=== PATIENT | male | born 1995 | race Caucasian/White ===

== ENCOUNTER 2020-01-19 11:43 | Emergency (ER) | payer SELFPAY ==
--- NOTE | 2020-01-19 11:58 | ED.SKABFB ---
HPI - Skin/Abscess/Foreign Bdy General Chief complaint: Wound/Laceration Stated complaint: infection rt arm Time Seen by Provider: 01/19/20 11:58 Source: patient Mode of arrival: ambulatory Limitations: no limitations History of Present Illness HPI narrative: 24 y/o male with history of IVDA presenting with new onset of 2 tender boils on his arm. He states he gets these all the time since he has been using IV heroin daily for the last 6-7 months. He states they usually go away on their own if he leaves them alone. The one near his elbow is now more swollen and soft he states and he wants to get it evaluated for drainage. MD complaint: abscess/boil Related Data Previous Rx's Medication Instructions Recorded cephalexin [Keflex] 500 mg PO QID 7 Days #28 cap 01/19/20 doxycycline monohydrate 100 mg PO BID 7 Days #14 cap 01/19/20 Allergies Allergy/AdvReac Type Severity Reaction Status Date / Time No Known Allergies Allergy Unverified 12/23/19 19:50 [No Known Allergies*] Review of Systems Review of Systems: Constitutional: No Fever, No Chills ENT/Mouth: No sore throat, No Rhinorrhea Cardiovascular: No Chest Pain, No SOB Respiratory: No Cough Gastrointestinal: No Nausea, No Vomiting, No Diarrhea, No abdominal Pain Musculoskeletal: No joint pain, No Myalgias Skin: + Skin Lesions, No rash Neuro: No Weakness, No Numbness, No Dizziness, No Headache Psych: No Anxiety/Panic, No Depression Heme/Lymph: No Bruising, No Lymphadenopathy PMFSH Past Medical History Attestation statement: The following information was validated with the patient. Medical History (Updated 01/19/20 @ 12:45 by HERMINIO Lopez) IVDU (intravenous drug user) No known health problems Social History Social History Advance Directives: No Advance Directives Information Provided: No Physical Exam Vital Signs: Vital Signs: Vital Signs Temp Pulse Resp BP Pulse Ox 01/19/20 12:21 97.1 F 83 17 141/68 H 97 Body Mass Index 28.2 Appearance: Alert. Oriented X3. No acute distress. HEENT: normal inspection CVS: Normal heart rate and rhythm. Pulses normal. Respiratory: No respiratory distress. Skin: Skin warm and dry. Normal skin color. Normal skin turgor. No rashes. Extremities: right forearm 2 celluliitic areas of erythema and warmth 2cm x2cm. fluctuant abscess in in AC fossa with mild surrouding erythema. Neuro: Oriented X 3. No motor deficit. No sensory deficit. Discharge Plan Discharge Clinical Impression: IVDU (intravenous drug user), Abscess Patient Disposition: Home, Self-Care Instructions: Abscess (ED) Additional Instructions: Come back to the ER in 2 days for a wound check and to remove the packing. If the pain, redness, or swelling get worse come back to the ER sooner for evaluation. If you develop fever or chills come back to the ER for evaluation. Do not inject heroin into the sites of infection - in can lead to a life threatening blood stream infection. If you would like to pursue detox come back to the ER for resources. Prescriptions: New cephalexin [Keflex] 500 mg capsule 500 mg PO QID 7 Days Qty: 28 RF: 0 doxycycline monohydrate 100 mg capsule 100 mg PO BID 7 Days Qty: 14 RF: 0 Stand Alone Forms: Work/School Release Interventions: ED Discharge Assessment Last Done: 01/19/20 12:49 Discharge Date/Time: 01/19/20 12:52
[2020-01-19 12:21] VITALS: BP 141/68; PULSE 83; RESP 17; TEMP 36.2; O2SAT 97; BMI 28.2
[2020-01-19] MEDS: Lidocaine HCl 2 % MPF 5 ML VIAL SUBCUT (12:29)
== END 2020-01-19 12:52 | disposition home or self-care (01) ==
PROVIDERS: Emergency Provider Emergency Medicine
DX: L02.413 Cutaneous abscess of right upper limb (principal); M79.601 Pain in right arm; Z79.899 Other long term (current) drug therapy
CPT/HCPCS: 99283; 99284

== ENCOUNTER 2020-01-22 23:06 | Emergency (ER) | payer SELFPAY ==
[2020-01-22 23:10] VITALS: BP 118/81; PULSE 91; RESP 18; TEMP 36.6; O2SAT 97; BMI 28.3
--- NOTE | 2020-01-22 23:56 | ED.WOUNDLAC ---
HPI - Wound/Laceration General Chief Complaint: Wound/Laceration Stated Complaint: WOUND CHECK Time Seen by Provider: 01/22/20 23:26 Source: patient Mode of arrival: ambulatory History of Present Illness HPI narrative: 24-year-old male with a past medical history of IVDA presenting to ED for abscess check /packing removal to right AC from 3 days ago when seen in the ED. Admits to taking previously prescribed antibiotics. Reports area looks improved. Denies fever, chills, drainage Onset (ago): day(s) Related Data Previous Rx's Medication Instructions Recorded cephalexin [Keflex] 500 mg PO QID 7 Days #28 cap 01/19/20 doxycycline monohydrate 100 mg PO BID 7 Days #14 cap 01/19/20 Allergies Allergy/AdvReac Type Severity Reaction Status Date / Time No Known Allergies Allergy Unverified 12/23/19 19:50 [No Known Allergies*] Review of Systems Review of Systems: Constitutional: No Weight loss, No Fever, No Chills Musculoskeletal: No joint pain, No Myalgias, No Joint Swelling Skin: +abscess, No Skin Lesions, No rash Yes all other systems are reviewed and are negative [facility] Past Medical History Attestation statement: The following information was validated with the patient. Source: old records reviewed and nursing notes reviewed Medical History (Updated 01/22/20 @ 23:56 by HERMINIO Bassett) IVDU (intravenous drug user) No known health problems Social History Social History Advance Directives: No Physical Exam Vital Signs: Vital Signs: Vital Signs Temp Pulse Resp BP Pulse Ox 01/22/20 23:10 97.8 F 91 18 118/81 97 Body Mass Index 28.3 Const: General: cooperative and healthy appearing Orientation/consciousness: patient oriented x3 Limitations: no limitations HENMT: Head: Yes normal to inspection Ears: hearing grossly normal bilaterally General nose exam: Normal external nose present Face and sinus: Yes normal facial exam Eyes: General: appearance normal, both eyes and all related structures EOM: EOMs intact bilaterally Neck: Neck: Yes normal visual inspection Resp: Effort & Inspection: normal respiratory effort Skin: Other: abscess with packing in place noted to right antecubital area. Packing removed. Slight bloody drainage expressed. Healing surrounding cellulitis. No streaking. No fluctuance or induration Rashes: no rashes Neuro: General: patient oriented x3 Gait exam (Neuro): Normal gait present Extrem: General: Yes normal to inspection MDM - Wound/Laceration MDM Narrative Medical decision making narrative: On exam vital signs stable, NAD/ well-appearing, packing removed from right AC abscess. No sign of worsening infection. Differential Diagnosis Differential diagnosis: Likely abscess Discharge Plan Discharge Clinical Impression: Wound check, abscess Patient Disposition: Home, Self-Care Instructions: Abscess Follow-up (ED) Additional Instructions: the packing was removed from her abscess Keep area dry and clean Continue taking previously prescribed antibiotics to their completion if area begins to drain pus again, you have fever, redness, chills, or streaking return to the ED You should see yoru PCP in 3 days Prescriptions: No Action cephalexin [Keflex] 500 mg capsule 500 mg PO QID 7 Days Qty: 28 RF: 0 doxycycline monohydrate 100 mg capsule 100 mg PO BID 7 Days Qty: 14 RF: 0 Referrals: ED Physician,Generic [Emergency Provider] - 3 days (Your PCP)
== END 2020-01-23 00:13 | disposition home or self-care (01) ==
PROVIDERS: Emergency Provider Emergency Medicine
DX: Z48.00 Encounter for change or removal of nonsurgical wound dressing (principal)
CPT/HCPCS: 99283

== ENCOUNTER 2020-03-04 21:32 | Emergency (ER) | payer SELFPAY ==
[2020-03-04 21:51] VITALS: BP 119/59; PULSE 60; RESP 16; TEMP 36.2; O2SAT 98; BMI 27.1
--- NOTE | 2020-03-04 22:12 | ED_ITS ---
HPI - Wound/Laceration General Chief Complaint: Recheck/Abnormal Lab/Rx Stated Complaint: Suture removal work related Time Seen by Provider: 03/04/20 22:11 Source: patient Mode of arrival: ambulatory Limitations: no limitations History of Present Illness HPI narrative: 24-year-old male presents for suture removal to the right middle finger. No indication of infection, redness or swelling. Wound is well healed. Patient has no complaints. Place: work Patient tetanus UTD: Yes Related Data Previous Rx's Medication Instructions Recorded cephalexin [Keflex] 500 mg PO QID 7 Days #28 cap 01/19/20 doxycycline monohydrate 100 mg PO BID 7 Days #14 cap 01/19/20 Allergies Allergy/AdvReac Type Severity Reaction Status Date / Time No Known Allergies Allergy Unverified 12/23/19 19:50 [No Known Allergies*] Review of Systems Review of Systems: Constitutional: No Fever, No Chills ENT/Mouth: No Ear Pain, No Nasal Congestion, No sore throat Eyes: No Eye Pain, No Swelling, No Redness Cardiovascular: No Chest Pain, No SOB Respiratory: No Cough, No Sputum, No Dyspnea Gastrointestinal: No Nausea, No Vomiting, No Diarrhea, No Hematochezia, No Melena Genitourinary: No Dysuria, No Urinary Frequency, No Hematuria Musculoskeletal: No Myalgias Skin: No Skin Lesions, No rash Neuro: No Weakness, No Numbness, No Paresthesias, No Dizziness, No Headache Heme/Lymph: No Lymphadenopathy Endocrine: No Polyuria, No Polydipsia Yes all other systems are reviewed and are negative [facility] Past Medical History Attestation statement: The following information was validated with the patient. Medical History (Updated 03/04/20 @ 22:13 by Loree Parada NP) IVDU (intravenous drug user) No known health problems Social History Social History Alcohol intake: current Alcohol intake frequency: a few times a month Smoking Status: Current every day smoker Use of substances other than those prescribed or required for medical reasons: No Substance Use Type: Former Substance User Advance Directives: No Physical Exam Vital Signs: Vital Signs: Last Vital Signs Temp 97.2 F 03/04/20 21:51 Pulse 60 03/04/20 21:51 Resp 16 03/04/20 21:51 BP 119/59 L 03/04/20 21:51 Pulse Ox 98 03/04/20 21:51 Body Mass Index 27.1 Appearance: Alert. Oriented X3. No acute distress. Eyes: Pupils equal, round and reactive to light. ENT: Pharynx normal. Neck: Normal inspection. Neck supple. CVS: Normal heart rate and rhythm. Pulses normal. Respiratory: No respiratory distress. Breath sounds normal. Abdomen: Soft and nontender. Skin: Skin warm and dry. Normal skin color. Normal skin turgor. Extremities: No lower extremity edema. Neuro: No motor deficit. No sensory deficit. Course Course Course Narrative: 24-year-old male presents for suture removal. Wound is well healed, well approximated. No indication of infection, brisk capillary refill to all extremities, pulses equal. Sutures removed without difficulty, patient tolerated procedure well. Patient verbalized understanding of and agrees to plan of care discharge home. He needs no further care for this. Discharge Plan Discharge Clinical Impression: Visit for suture removal Patient Disposition: Home, Self-Care Instructions: Stitches Removal (ED) Additional Instructions: you were evaluated for suture removal. Your wound has healed very well and are no signs of infection at this time. There is no further care required for this. Thank you for choosing this emergency department for evaluation. Please follow-up with primary care physician as needed. Return to the emergency department for any new, concerning, or worsening symptoms. Prescriptions: No Action cephalexin [Keflex] 500 mg capsule 500 mg PO QID 7 Days Qty: 28 RF: 0 doxycycline monohydrate 100 mg capsule 100 mg PO BID 7 Days Qty: 14 RF: 0 Interventions: ED Discharge Assessment Last Done: 03/04/20 22:23 Discharge Date/Time: 03/04/20 22:24
== END 2020-03-04 22:24 | disposition home or self-care (01) ==
PROVIDERS: Emergency Provider Emergency Medicine
DX: Z48.02 Encounter for removal of sutures (principal); Z79.899 Other long term (current) drug therapy; F17.200 Nicotine dependence, unspecified, uncomplicated; Z71.6 Tobacco abuse counseling
CPT/HCPCS: 99283